=== PATIENT | male | born 1960 | race Caucasian/White ===

== ENCOUNTER 2018-06-30 19:21 | Emergency (ER) | payer OTHER ==
[2018-06-30] MEDS ORDERED: KETOROLAC 30 MG/1 ML SDV IM ONE (20:01)
[2018-06-30] MEDS ORDERED: PEG 3350/NA SULF,BICARB,CL/KCL (GAVILYTE-G) 4000 ML BTL PO ONE (20:02)
--- NOTE | 2018-06-30 20:07 | EDPHY ---
H & P Stated Complaint: cONSTIPATED, SUPPOSITORIES/MIRALAX NOT HELPING Time Seen by Provider: 06/30/18 19:52 HPI/ROS: CHIEF COMPLAINT: Constipation HISTORY OF PRESENT ILLNESS: Patient is a 58-year-old man who states that he typically has 4-5 bowel movements per day but has not had 1 for 3 days. He is not sure why. He presented here on Thursday night thinking he had a kidney stone but CT scan revealed constipation. He does have a stone in his kidney but is not currently passing. No fever. No vomiting. He is passing gas. He has tried prune juice as well as 2 suppositories and 2 packets of MiraLax. He also tried a bottle of magnesium citrate. None of these have resulted in bowel movements. He comes back to the ER today complaining of continued cramping and no bowel movement. He is not taking narcotics. Severity: Severe Modifying factors: Food, has not felt like eating REVIEW OF SYSTEMS: Constitutional: denies: chills, fever, recent illness, recent injury EENTM: denies: blurred vision, double vision, nose congestion Respiratory: denies: cough, shortness of breath Cardiac: denies: chest pain, irregular heart rate, lightheadedness, palpitations Gastrointestinal/Abdominal: See HPI Genitourinary: denies: dysuria, frequency, hematuria, pain Musculoskeletal: denies: joint pain, muscle pain Skin: denies: lesions, rash, jaundice, bruising Neurological: denies: headache, numbness, paresthesia, tingling, dizziness, weakness Hematologic/Lymphatic: denies: blood clots, easy bleeding, easy bruising Immunologic/allergic: denies: HIV/AIDS, transplant EXAM: GENERAL: Well-appearing, well-nourished and in no acute distress. HEAD: Atraumatic, normocephalic. EYES: Pupils equal round and reactive to light, extraocular movements intact, sclera anicteric, conjunctiva are normal. ENT: TMs normal, nares patent, oropharynx clear without exudates. Moist mucous membranes. NECK: Normal range of motion, supple without lymphadenopathy or JVD. LUNGS: Breath sounds clear to auscultation bilaterally and equal. No wheezes rales or rhonchi. HEART: Regular rate and rhythm without murmurs, rubs or gallops. ABDOMEN: Soft, nontender, normoactive bowel sounds. No guarding, no rebound. No masses appreciated. BACK: No CVA tenderness, no spinal tenderness, step-offs or deformities EXTREMITIES: Normal range of motion, no pitting or edema. No clubbing or cyanosis. NEUROLOGICAL: Cranial nerves II through XII grossly intact. Normal speech, normal gait. 5/5 strength, normal movement in all extremities, normal sensation , normal reflexes PSYCH: Normal mood, normal affect. SKIN: Warm, dry, normal turgor, no visible rashes or lesions. Source: Patient, Family Exam Limitations: No limitations - Personal History Current Tetanus Diphtheria and Acellular Pertussis (TDAP): Yes - Medical/Surgical History Hx Asthma: No Hx Chronic Respiratory Disease: No Hx Diabetes: No Hx Cardiac Disease: No Hx Renal Disease: No Hx Cirrhosis: No Hx Alcoholism: No Hx HIV/AIDS: No Hx Splenectomy or Spleen Trauma: No Other PMH: high cholesterol - Family History Significant Family History: No pertinent family hx - Social History Smoking Status: Never smoked Alcohol Use: Sober Drug Use: None Constitutional: Initial Vital Signs Temperature (C) 36.8 C 06/30/18 19:26 Heart Rate 78 06/30/18 19:26 Respiratory Rate 18 06/30/18 19:26 Blood Pressure 113/68 06/30/18 19:26 O2 Sat (%) 97 06/30/18 19:26 O2 Delivery Mode Room Air Allergies/Adverse Reactions: No Known Allergies Allergy (Unverified 06/30/18 19:28) Home Medications: Medication Instructions Recorded Ondansetron Odt [Zofran Odt 4 mg 4 mg PO Q4 PRN #10 tab 06/29/18 (*)] Medical Decision Making ED Course/Re-evaluation: The patient has a benign abdominal exam. He is clearly uncomfortable. I offered to repeat testing and imaging but he declines. We discussed options for treatment. I recommended GoLYTELY . we also discussed antibiotics which she would prefer to avoid. Also give him a dose of Toradol here in the department for pain control. He will return home and drink the GoLYTELY the 1 glass full every 0.5 hr until he has symptoms resolution. Differential Diagnosis: Partial list of the Differential diagnosis considered include but were not limited to; constipation, anxiety and although unlikely based on the history and physical exam, I also considered kidney stone, obstruction, volvulus. I discussed these differential diagnoses and the plan with the patient as well as the usual and expected course. The patient understands that the diagnosis is provisional and that in medicine we are not always correct and that further workup is often warranted. Usual and customary warnings were given. All of the patient's questions were answered. The patient was instructed to return to the emergency department should the symptoms at all worsen or return, otherwise to followup with the physician as we discussed. - Data Points Medications Given: Discontinued Medications Ketorolac Tromethamine (Toradol) 60 mg IM EDNOW ONE Stop: 06/30/18 20:02 Last Admin: 06/30/18 20:36 Dose: 60 mg Polyethylene Glycol/Electrolytes (Gavilyte - G) 4,000 ml PO ONCE ONE Stop: 06/30/18 20:03 Last Admin: 06/30/18 20:42 Dose: 4,000 ml Departure - Departure Disposition: Home, Routine, Self-Care Clinical Impression: Constipation Qualifiers: Constipation type: unspecified constipation type Qualified Code(s): K59.00 - Constipation, unspecified Abdominal pain Qualifiers: Abdominal location: generalized Qualified Code(s): R10.84 - Generalized abdominal pain Condition: Fair Instructions: Polyethylene Glycol 3350/Electrolytes (By mouth), Constipation ( ED) Additional Instructions: Take 1 glass full of GoLYTELY every 0.5 hr until you have resolution of your constipation. He may then titrate for effectiveness as we discussed. Referrals: Alec Moreno MD [Primary Care Provider] - As per Instructions
[2018-06-30 20:49] VITALS: BP 129/77
== END 2018-06-30 20:48 | disposition home or self-care (01) ==
DX: K59.00 Constipation, unspecified (principal); R10.84 Generalized abdominal pain
CPT/HCPCS: J1885